=== PATIENT | male | born 1995 | race Caucasian/White ===

== ENCOUNTER → 2024-01-18 14:38 | Outpatient (REF) | payer OTHER, SELFPAY ==
--- NOTE | 2024-01-18 14:44 | CA_ITS ---
Transthoracic Echocardiogram Patient (Last, First, Middle): Monty Anders, Gender: Male Date of : 1995 Age: 28 Procedure Date: 01/18/2024 Procedure Type: Transthoracic Echocardiogram Location: OP Height: 177.8 cm Weight: 72.58 kg BSA: 1.90 m2 Heart Rate: bpm BP: 130 / 80 mmHg Oracle Database Analyst: GEOVANNA Referring MD: Ford Gudino DO Software Support Technician: Bryce Bowens MD Symptoms: R94.31 ABNORMAL EKG Study Quality: Good ECG Rhythm: Sinus Conclusions: - Essentially normal study with mildly dilated left atrium Findings Left Ventricle Normal left ventricular size, thickness, and systolic function. The visually estimated ejection fraction is between 60-65%. Spectral Doppler is indicative of a normal filling pattern. Right Ventricle Normal right ventricular cavity size and systolic function. Atria The left atrium is mildly dilated. There is no evidence of interatrial shunt. The right atrium is normal in size. Aortic Valve Normal aortic valve structure and function. There is no aortic valve stenosis. There is no aortic valve regurgitation. Mitral Valve Normal mitral valve structure and function. There is trace mitral valve regurgitation. There is no mitral valve stenosis. Pulmonic Valve The pulmonic valve is likely normal. Tricuspid Valve Normal tricuspid valve structure. There is trace tricuspid valve regurgitation. The right ventricular systolic pressure is normal. The right ventricular systolic pressure is 30 mmHg. Normal right atrial pressure. There is no evidence of pulmonary hypertension. Great Vessels All visible segments of the aorta are normal in size. There is no dilatation of the ascending aorta measuring 2.60 cm. The visualized portions of the pulmonary artery and branches are normal. Venous The inferior vena cava is normal in size and collapses greater than 50% with inspiration. Pericardium/Pleural There is no evidence of pericardial effusion. Prior Study Comparison No prior study available for comparison. Measurements 2D Linear Measurements IVSd: 0.80 0.6-0.9/0.6-1.0 cm LVIDd: 4.74 3.9-5.3/4.2-5.9 cm LVIDd Index: 2.49 2.4-3.2/2.2-3.1 cm/m2 LVIDs: 3.16 2.0-3.6 cm LVPWd: 1.07 0.7-1.1 cm LA Diam: 3.50 2.7-3.8/3.0-4.0 cm LAIDs Index: 1.84 1.5-2.3 cm/m2 LV Mass: 189.60 67-162/88-224 g LV Mass Index: 99.79 43-95/49-115 g/m2 LVOT Diam: 1.90 3.0+(-)1.3 cm 2D Systolic Function EF 4C: 65.90 >55% EF 2C: 64.20 >55% EF BiP: 63.40 >55% Mitral Valve MV Pk E: 0.78 MV PK A: 0.43 MV Decel Time: 234.00 E/A: 1.80 E'Lateral: 15.10 E'Medial: 13.50 E/E' Med: 5.80 E/E' Lat: 5.20 PHT: 68.00 MVA PHT: 3.24 Decel [place]: 3.36 Aortic Valve AoV Pk Rohit: 1.55 AoV Mn Rohit: 0.99 AoV VTI: 0.32 AoV Pk Grad: 10.00 Aov Mn Grad: 5.00 BHARATH Cont.VTI: 2.19 LVOT LVOT Pk Rohit: 1.35 LVOT Mn Rohit: 0.83 LVOT VTI: 0.25 LVOT Pk Grad: 7.00 LVOT Mn Grad: 3.00 LVOT Diam: 1.90 LVOT Area: 2.84 Diastolic Function MV Pk E: 0.78 MV Pk A: 0.43 E/A: 1.80 E'Medial: 13.50 E/E' Med: 5.80 E' Laterial: 15.10 E/E' Lat: 5.20 Right Ventricle TAPSE (mm): 27.70 TVS' Rohit: 15.50 Tricuspid Valve TR Pk Rohit: 2.37 TR Pk Grad: 22.00 RA Press: 8.00 RVSP: 30.00 Great Vessels Aorta Sinus of Valsalva: 2.65 2.0-3.5 cm Ao Asc: 2.60 2.1-3.4 cm Updated in Other Vendor System with Status of Final Bryce Bowens MD electronically signed on 01/19/2024 12:47:50 PM with status of Final
== END ==
LOC: HO.CARD 14:38
PROVIDERS: PCP Family Medicine; Visit Provider Family Medicine
DX: R94.31 Abnormal electrocardiogram [ECG] [EKG] (principal)
CPT/HCPCS: 93306

== ENCOUNTER → 2024-01-18 14:44 | Outpatient (BNV) | payer OTHER, SELFPAY | PROVIDERS: PCP Family Medicine; Visit Provider Internal Medicine Cardiovascular Disease | DX: R94.31 Abnormal electrocardiogram [ECG] [EKG] (principal) | CPT/HCPCS: 93306 ==

== ENCOUNTER 2024-06-13 13:23 | Outpatient (AMB) | payer OTHER, SELFPAY ==
--- NOTE | 2024-06-13 14:03 | MHC.OFFVIS ---
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 He is a pleasant 28-year-old male was referred here because of an abnormal EKG and subsequently had an echocardiogram which showed left atrial enlargement. Patient works in a highly labor intensive job, cutting down trees. He climbs trees very frequently and remains very active. He said he has been manage for his ADHD and anxiety disorder with multiple psychoactive medications of which she is not sure. He denies any cardiovascular symptoms of chest pain, shortness of breath. He denies any heart failure symptoms. [facility] Family History Father Atrial fibrillation, chronic Social History Alcohol intake: current Alcohol type: beer Patient Tobacco Use Status: Never used Tobacco Substance Use Type: Marijuana Review of Systems Const Denies weakness ENT Denies dizziness Card Denies chest pain, Denies chest pain with activity, Denies syncope, Denies rapid heart rate, Denies pedal edema, Denies edema, Denies leg edema, Denies lightheadedness, Denies palpitations, Denies dyspnea, Denies dyspnea on exertion and Denies orthopnea Resp Denies cough, Denies dyspnea and Denies dyspnea on exertion GI Denies hematochezia and Denies change in stool character Musc Denies abnormal gait, Denies muscle cramps, Denies muscle weakness, Denies numbness, Denies radiating pain into limb and Denies tingling Neuro Denies abnormal gait, Denies dizziness, Denies syncope, Denies numbness, Denies tingling and Denies weakness Endo Denies palpitations Physical Exam Vital Signs: Last Vital Signs Pulse 61 06/13/24 14:05 BP 110/60 06/13/24 14:05 BMI result Body Mass Index 23.1 Const General: cooperative, comfortable, no acute distress, well developed, alert and awake Nutritional Appearance: well nourished and thin Orientation/consciousness: patient oriented x3 Limitations: no limitations HEENT Head: Yes normocephalic and Yes atraumatic Neck Neck: Yes trachea midline, Yes supple and Yes no JVD Resp Effort & Inspection: normal respiratory effort Auscultation: clear to auscultation bilaterally Cardio Jugular venous distension: no JVD Palpation: normal PMI Rate: regular rate Rhythm: regular rhythm Heart sounds: S1 normal heart sound present, S2 normal heart sound present, no click, no gallops, no murmurs and no rubs GI Auscultation: normal bowel sounds Skin General skin exam: no rashes or lesions noted Neuro General: patient oriented x3 and no focal motor deficits Extrem General: Yes no clubbing, cyanosis or edema Office Procedures EKG Details: EKG shows normal sinus rhythm with voltage criteria for LVH, most likely due to thin body habitus with early repolarization [id number], Complete Assessment & Plan Assessment & Plan (1) Left atrial enlargement: Code(s): I51.7 - Cardiomegaly Plan: Noted isolated left atrial enlargement on echocardiogram without any other obvious etiology such as atrial septal defect. Most likely related to either technique in a patient with thin body habitus or high volume workload, patient frequently climbs 3 and that could cause volume expansion of the left atrial chamber. He was no symptoms related to it I do not think this is pathologic at this point time. No further workup is indicated at this point time. His EKG also is suggestive of thin body status which gives high QRS voltage on the surface EKG. At this point time no further cardiac workup is indicated. Thank you for allowing me to partake in his care Coding Level of Care Code New Pt Level 3 (56810) Diagnoses Left atrial enlargement I51.7 CPT Codes EKG - CPT: 64703-[id number], Complete ([id number])
[2024-06-13 14:05] VITALS: BP 110/60; PULSE 61; BMI 23.1
== END 2024-06-13 14:29 | disposition home or self-care (01) ==
PROVIDERS: PCP Family Medicine; Visit Provider Internal Medicine Cardiovascular Disease
DX: I51.7 Cardiomegaly (principal); R94.31 Abnormal electrocardiogram [ECG] [EKG]
CPT/HCPCS: 93010; 99213

== ENCOUNTER → 2024-06-13 13:23 | Outpatient (BNVA) | payer OTHER, SELFPAY | PROVIDERS: PCP Family Medicine; Visit Provider Internal Medicine Cardiovascular Disease | DX: I51.7 Cardiomegaly (principal) | CPT/HCPCS: 93005 ==